=== PATIENT | female | born 1995 | race Caucasian/White ===

== ENCOUNTER 2017-07-03 09:14 | Emergency (ER) | payer OTHER ==
[2017-07-03 09:24] VITALS: BP 113/78
--- NOTE | 2017-07-03 09:48 | UC ---
Throat Pain/Nasal [place] HPI - HPI Summary HPI Summary: [address] AND PAIN WITH SWALLOWING. HAS SUBJECTIVE FEVERS AND MILD COUGH WITH CONGESTION. - History of Current Complaint Chief Complaint: UCRespiratory Stated Complaint: SINUS, AND CHEST CONGESTION Time Seen by Provider: 07/03/17 09:39 Hx Obtained From: Patient Hx Last Menstrual Period: 06/19/17 Onset/Duration: Gradual Onset, Lasting Days, Still Present Severity: Moderate Pain Intensity: 7 Pain Scale Used: 0-10 Numeric Cough: Nonproductive Associated Signs & Symptoms: Positive: Fever - Allergies/Home Medications Allergies/Adverse Reactions: Allergies Allergy/AdvReac Type Severity Reaction Status Date / Time No Known Allergies Allergy Verified 07/03/17 09:23 PMH/Surg Hx/FS Hx/Imm Hx Previously Healthy: Yes - Surgical History Surgical History: None - Family History Known Family History: Positive: Hypertension - Social History Alcohol Use: Weekly Substance Use Type: None Smoking Status (MU): Light Every Day Tobacco Smoker Type: Cigarettes Review of Systems Constitutional: Fever, Fatigue ENT: Sore Throat, Nasal Discharge Respiratory: Cough Cardiovascular: Negative Gastrointestinal: Negative All Other Systems Reviewed And Are Negative: Yes Physical Exam Triage Information Reviewed: Yes Appearance: Well-Appearing, No Pain Distress, Well-Nourished Vital Signs: Initial Vital Signs Temp 98.1 F 07/03/17 09:16 Pulse 119 07/03/17 09:16 Resp 18 07/03/17 09:16 BP 113/78 07/03/17 09:16 Pulse Ox 100 07/03/17 09:16 Vital Signs Reviewed: Yes Eyes: Positive: Conjunctiva Clear ENT: Positive: Hearing grossly normal, Pharynx normal, TMs normal. Negative: Tonsillar swelling, Tonsillar exudate, Hoarse voice Neck: Positive: Supple, Tenderness @ - SHOTTY SPFL CERVICAL LAD, Enlarged Nodes @ - SHOTTY SPFL CERVICAL LAD Respiratory Exam: Normal Cardiovascular Exam: Normal Abdomen Description: Positive: Soft Musculoskeletal: Positive: No Edema Neurological: Positive: Alert Psychological: Positive: Age Appropriate Behavior Skin: Negative: rashes Diagnostics - Laboratory Diagnostic Studies Completed/Ordered: RAPID STREP NEGATIVE Throat Pain/Nasal Course/Dx - Differential Dx/Diagnosis Provider Diagnoses: ACUTE PHARYNGITIS Discharge - Discharge Plan Condition: Stable Disposition: HOME Prescriptions: [id number] W/ APAP [Daytime Severe Cold &... 5-66-931-325 mg/15Ml] 1 liq PO DAILY #1 bottle [id number] [Nyquil Severe Cold/Flu 5-6.25-10-325 mg/15Ml] 1 liq PO BEDTIME #1 bottle Patient Education Materials: Pharyngitis (ED) Forms: *Work Release Referrals: No Primary Care Phys,NOPCP [Primary Care Provider] - Additional Instructions: STREP TEST NEGATIVE. YOUR SYMPTOMS ARE LIKELY VIRALLY MEDIATED AND SHOULD RESOLVE ON THEIR OWN WITH TIME. REST, HYDRATE, OTC MEDS NEEDED. SEEK FOLLOW-UP IF YOU ARE NOT IMPROVING OVER THE NEXT 1-2 WEEKS. CALL THE NUMBER BELOW FOR ASSISTANCE IN ESTABLISHING WITH A PCP An additional resource available to assist in finding the appropriate physician for your health care needs is the [facility] ([facility]). You may contact them by calling [phone].
== END 2017-07-03 10:20 | disposition home or self-care (01) ==
LOC: UCEAST 09:14
DX: J02.9 Acute pharyngitis, unspecified (principal); Z72.0 Tobacco use
CPT/HCPCS: 87651; 99201; G0463

== ENCOUNTER 2018-05-19 12:44 | Emergency (ER) | payer BC, OTHER ==
[2018-05-19 15:53] VITALS: BP 130/48
--- NOTE | 2018-05-19 16:06 | UC ---
Complaint Female HPI - HPI Summary HPI Summary: 22 y/o female presents to the urgent care c/o past 1 -2 weeks ago, when pt voids she has noticed burning. pt states on her symptoms began to get worse. pt c/o burning with void, constant burning, stinging pain to lower abd. - History Of Current Complaint Chief Complaint: UCGU Stated Complaint: BURNING URINATION Time Seen by Provider: 05/19/18 15:50 Hx Obtained From: Patient Hx Last Menstrual Period: 04/28/18 Pain Intensity: 4 - Allergies/Home Medications Allergies/Adverse Reactions: Allergies Allergy/AdvReac Type Severity Reaction Status Date / Time No Known Allergies Allergy Verified 05/19/18 15:53 PMH/Surg Hx/FS Hx/Imm Hx - Surgical History Surgical History: Yes Surgery Procedure, Year, and Place: oral surgery - Family History Known Family History: Positive: Hypertension - Social History Alcohol Use: Occasionally Substance Use Type: Marijuana Substance Use Comment - Amount & Last Used: daily Smoking Status (MU): Light Every Day Tobacco Smoker Type: Cigarettes Physical Exam - Summary Physical Exam Summary: VITAL SIGNS: Reviewed. GENERAL: Patient is a well developed and nourished female who is sitting comfortable in the examining table. Patient is not in any acute respiratory distress. HEAD AND FACE: No signs of trauma. No ecchymosis, hematomas or skull depressions. No sinus tenderness. EYES: PERRLA, EOMI x 2, No injected conjunctiva, clear watery eyes, no nystagmus. No photophobia. EARS: Hearing grossly intact. Ear canals and tympanic membranes are within normal limits. MOUTH: pharynx with no erythema, no exudates,no palatal petechiae. no B/L tonsillar enlargement Uvula in midline. NECK: Supple, trachea is midline, no lymphadenopathy, no JVD, no carotid bruit, no c-spine tenderness, neck with full ROM. CHEST: Symmetric, no tenderness at palpation LUNGS: Clear to auscultation bilaterally. No wheezing or crackles. CVS: Regular rate and rhythm, S1 and S2 present, no murmurs or gallops appreciated. ABDOMEN: Soft, non-tender. No signs of distention. No rebound no guarding, and no masses palpated. Bowel sounds are normal. BACK:no scoliosis or lesions, non tender to palpation, No B/L CVA tenderness EXTREMITIES: FROM in all major joints, no edema, no cyanosis or clubbing. NEURO: Alert and oriented x 3. No acute neurological deficits. Speech is normal and follows commands. SKIN: Dry and warm Triage Information Reviewed: Yes Vital Signs: Initial Vital Signs Temp 98.1 F 05/19/18 15:48 Pulse 76 05/19/18 15:48 Resp 18 05/19/18 15:48 BP 130/48 05/19/18 15:48 Pulse Ox 100 05/19/18 15:48 Complaint Female Dx - Differential Dx/Diagnosis Differential Diagnosis/HQI/PQRI: Cervicitis, Pelvic Inflammatory Disease, , Renal Colic, Sexually Transmitted Disease, Ureteral Stone, Urinary Tract Infection Provider Diagnoses: 1- UTI. 2-Dysuria Discharge - Sign-Out/Discharge Documenting (check all that apply): Patient Departure - D/C home All imaging exams completed and their final reports reviewed: No Studies - Discharge Plan Condition: Stable Disposition: HOME Prescriptions: Phenazopyridine TAB* [Pyridium 100 mg TAB*] 100 mg PO TID #6 tab Sulfamethox/Trimethoprim DS* [Bactrim DS 800/160 TAB*] 1 tab PO BID #14 tab Patient Education Materials: Urinary Tract Infection in Women (ED) Referrals: [facility] [place] [facility]IAN REFERRAL [Outside] - 3 Days Additional Instructions: 1- Please take Bactrim [id number] PO x 7 days. Pyridium 100 mg PO TID x 2 days to alleviate urinary symptoms. Increase increase fluid intake. drink cranberry juice. 2-Urine sent for culture if any abnormality, you will be notified for further treatment. 3-If symptoms do not improve and you develop flank pain and pain despite taking antibiotics please go immediately to the ER for further management. Otherwise f/ u w/ your PCP if not improvement of symptoms - Billing Disposition and Condition Condition: STABLE Disposition: Home
== END 2018-05-19 16:35 | disposition home or self-care (01) ==
LOC: UCEAST 12:44
DX: N39.0 Urinary tract infection, site not specified (principal); F17.210 Nicotine dependence, cigarettes, uncomplicated
CPT/HCPCS: 81003; 84702; 87077; 87086; 99212; G0463

== ENCOUNTER 2018-05-21 12:09 | Emergency (ER) | payer BC ==
--- NOTE | 2018-05-21 12:40 | ED ---
GI/ HPI - HPI Summary HPI Summary: The pt is a 22 y/o female presenting to [facility] c/o of L flank pain since 3 days ago worsened today. She was seen at Urgent Care 3 days ago for a UTI and given abx to mild relief of the UTI sx. She notes pain with urination (since 1 week ago), hot flushes, and mild pelvic pain but denies fevers, N/V/D, and vaginal bleeding. The flank pain rated 6/10 in severity is aggravated by inhalation. - History of Current Complaint Chief Complaint: EDUrogenitalProblems Time Seen by Provider: 05/21/18 12:29 Stated Complaint: POSSIBLE UTI KIDNEY PAIN Hx Obtained From: Patient Hx Last Menstrual Period: 04/28/18 Onset/Duration: Started Days Ago - 3 days, Still Present Current Severity: Moderate Pain Intensity: 6 Location of Pain: Flank - L side Associated Signs and Symptoms: Positive: Negative - Vaginal bleeding, Flank Pain , UTI Symptoms, Other: - Hot flushes. Negative: Nausea, Vomiting, Diarrhea, Fever Aggravating Factor(s): Deep Breaths - Allergy/Home Medications Allergies/Adverse Reactions: Allergies Allergy/AdvReac Type Severity Reaction Status Date / Time No Known Allergies Allergy Verified 05/19/18 15:53 PMH/Surg Hx/FS Hx/Imm Hx Previously Healthy: No Endocrine/Hematology History: Denies: Hx Diabetes Cardiovascular History: Denies: Hx Hypertension Psychiatric History: Reports: Hx Anxiety, Hx Depression - Cancer History Cancer Type, Location and Year: None reported Hx Hematologic Symptoms: No Hx Chemotherapy: No Hx Radiation Therapy: No Hx Palliative Cancer Treatment: No - Surgical History Surgery Procedure, Year, and Place: oral surgery Infectious Disease History: No Infectious Disease History: Denies: Traveled Outside the [place] in Last 30 Days - Family History Known Family History: Positive: Hypertension - Social History Occupation: Employed Full-time Alcohol Use: Occasionally Substance Use Type: Reports: Marijuana Substance Use Comment - Amount & Last Used: daily Smoking Status (MU): Light Every Day Tobacco Smoker Type: Cigarettes Review of Systems Positive: Other - Positive- hot flushes . Negative: Fever Negative: Vomiting, Diarrhea, Nausea Genitourinary: Negative - Vaginal bleeding Positive: flank pain - L side , pain - with urination , other - Positive- mid pelvic pain All Other Systems Reviewed And Are Negative: Yes Physical Exam - Summary Physical Exam Summary: Appearance: Well-appearing, Well-nourished, lying in bed comfortably Skin: Warm, dry, no obvious rash Eyes: sclera anicteric, no conjunctival pallor ENT: mucous membranes moist, pharynx appears normal Neck: Supple, nontender Respiratory: Clear to auscultation, no signs of respiratory distress Cardiovascular: Normal S1, S2. No murmurs. Normal distal pulses in tibial and radial bilaterally. Abdomen: Soft, nontender, normal active bowel sounds present Musculoskeletal: Mild L CVA tenderness ; Strength/ROM Intact Neurological: A&Ox3, awake and alert, mentation is normal, speech is fluent and appropriate Psychiatric: affect is normal, does not appear anxious or depressed Triage Information Reviewed: Yes Vital Signs On Initial Exam: Initial Vitals Temp Pulse Resp BP Pulse Ox 98.8 F 110 18 126/78 99 05/21/18 12:13 05/21/18 12:13 05/21/18 12:13 05/21/18 12:13 05/21/18 12:13 Vital Signs Reviewed: Yes Diagnostics - Vital Signs Vital Signs Temp Pulse Resp BP Pulse Ox 05/21/18 12:13 98.8 F 110 18 126/78 99 - Laboratory Result Diagrams: 05/21/18 12:58 05/21/18 12:58 Lab Statement: Any lab studies that have been ordered have been reviewed, and results considered in the medical decision making process. GIGU Course/Dx - Course Course Of Treatment: A 22 year-old F presents to the ED with a CC of L flank pain since 3 days ago worsened today. She was seen at Urgent Care 3 days ago for a UTI and given abx to mild relief of the UTI sx. She notes pain with urination (since 1 week ago), hot flushes, and mild pelvic pain but denies fevers, N/V/D, and vaginal bleeding. The flank pain is aggravated by inhalation. A physical exam revealed mild CVA tenderness. Patient will be discharged with a final Dx of pyelonephritis. Pt is agreeable with this plan. Allergies noted - Diagnoses Provider Diagnoses: Pyelonephritis Discharge - Sign-Out/Discharge Documenting (check all that apply): Patient Departure - DC - Discharge Plan Condition: Good Disposition: HOME Patient Education Materials: Kidney Infection (ED) Forms: *School Release Referrals: [facility] [Outside] - 3 Days Additional Instructions: The pain from a kidney infection can take several days to respond, even if the antibiotics are working correctly, which the culture results from Saturday would indicate they are. I would give the pain until to start improving before worrying about it too much, but if you start feeling worse we should see you sooner than that. You should continue and finish the prescribed antibiotic. You can take Motrin or Naprosyn for the pain in the meantime. Return to ED for any new or worsening symptoms - Billing Disposition and Condition Condition: GOOD Disposition: Home - Attestation Statements Document Initiated by Codi: Yes Documenting Scribe: Celena José Provider For Whom Codi is Documenting (Include Credential): Rocael Harris MD Scribe Attestation: Celena Alicea, scribed for Rocael Harris MD on 05/22/18 at 1449. Scribe Documentation Reviewed: Yes Provider Attestation: The documentation as recorded by the Celena menard accurately reflects the service I personally performed and the decisions made by me, Rocael Harris MD
[2018-05-21 13:13] LABS: Hematocrit 38 % (35-47); Hemoglobin 12.7 g/dl (12.0-16.0); Mean Corpuscular HGB Conc 33 g/dl (31-36); Mean Corpuscular Hemoglobin 29 pg (27-31); Mean Corpuscular Volume 88 fL (80-97); Mean Platelet Volume 8.3 um3 (7.4-10.4); Platelet Count 191 10^3/ul (150-450); Red Blood Count 4.34 10^6/ul (4.00-5.40); Red Cell Distribution Width 14 % (10.5-15); White Blood Count 7.1 10^3/ul (3.5-10.8)
[2018-05-21 13:17] LABS: ABS Basophils 0 10^3/ul (0-0.2); ABS Eosinophils 0.1 10^3/ul (0-0.6); ABS Lymphocytes 2.5 10^3/ul (1.0-4.8); ABS Monocytes 0.4 10^3/ul (0-0.8); ABS Nucleated RBC 0 10^3/ul; Eosinophil % 1.5 % (0-6); Lymphocyte % 35.3 % (25-47); Nucleated Red Blood Cells % 0.1
[2018-05-21 13:42] LABS: EGFR Non-African American 114.2 (>60)
[2018-05-21 14:14] VITALS: BP 112/70
== END 2018-05-21 14:13 | disposition home or self-care (01) ==
LOC: ED 12:09
DX: N12 Tubulo-interstitial nephritis, not specified as acute or chronic (principal); F17.210 Nicotine dependence, cigarettes, uncomplicated
CPT/HCPCS: 36415; 80048; 84702; 85025; 99282

== ENCOUNTER 2021-11-15 13:34 | Inpatient (IN) ==
[2021-11-15 14:43] LABS: ABS Eosinophils 0.1 10^3/ul (0-0.6); ABS Lymphocytes 2.5 10^3/ul (1.0-4.8); ABS Monocytes 0.3 10^3/ul (0-0.8); ABS Neutrophils 3.7 10^3/ul (1.5-7.7); Eosinophil % 1.1 %; Hematocrit 37 % (35-47); Hemoglobin 12.6 g/dL (12.0-16.0); Lymphocyte % 37.6 %; Mean Corpuscular HGB Conc 34 g/dL (31-36); Mean Corpuscular Hemoglobin 29 pg (27-31); Mean Corpuscular Volume 86 fL (80-97); Mean Platelet Volume 7.8 fL (7.4-10.4); Platelet Count 242 10^3/uL (150-450); Red Blood Count 4.34 10^6 /uL (3.70-4.87); Red Cell Distribution Width 14 % (10-15); White Blood Count 6.6 10^3/uL (3.5-10.8)
[2021-11-15 14:44] LABS: Urine Appearance Cloudy; Urine Bilirubin Negative (Negative); Urine Blood Negative (Negative); Urine Color Yellow; Urine Glucose Negative (Negative); Urine Ketones Negative (Negative); Urine Nitrite Negative (Negative); Urine Protein Negative (Negative); Urine Specific Gravity 1.014 (1.002-1.030); Urine Urobilinogen Negative (Negative)
[2021-11-15 14:48] LABS: Urine Amorphous Crystals Present (Absent); Urine Bacteria Absent (Absent); Urine Red Blood Cell Trace(0-2/hpf) (Absent); Urine Squamous Epithelial Cell Present (Absent); Urine White Blood Cell Trace(0-5/hpf) (Absent)
[2021-11-15 15:01] LABS: Urine Benzodiazepine Screen None Detected (None Detect); Urine Cannabinoids Screen Presumptive Positive (None Detect); Urine Opiates Screen None Detected (None Detect)
[2021-11-15 15:31] LABS: ALT 11 U/L (7-52); AST 14 U/L (13-39); Acetaminophen < 15 mcg/mL; Albumin 4.4 g/dL (3.2-5.2); Alcohol, S < 13 mg/dL (<13); Alkaline Phosphatase 59 U/L (35-149); Anion Gap 7 mmol/L (2-11); Blood Urea Nitrogen 9 mg/dL (6-24); CO2 Carbon Dioxide 30 mmol/L (22-32); Calcium 9.5 mg/dL (8.6-10.3); Chloride 100 mmol/L (101-111); Globulin 2.2 g/dL (2-4); Glucose 82 mg/dL (70-100); Potassium 3.9 mmol/L (3.5-5.0); Salicylate < 2.50 mg/dL (<30); Sodium 137 mmol/L (135-145); Total Protein 6.6 g/dL (6.4-8.9); eGFR CKD-EPI 127.3 (>60)
[2021-11-15 15:37] LABS: HCG Pregnancy < 0.60 mIU/mL
[2021-11-15 15:46] LABS: TSH Ultra Thyroid Stim Horm 2.07 mcIU/mL (0.34-5.60)
[2021-11-15] MEDS ORDERED: Al Hydrox/Mg Hydrox/Simet LIQ 30 ML UDC PO PRN (16:55)
[2021-11-16] MEDS: Vitamin THERAPEUTIC TAB PO SCH (09:54)
[2021-11-16] MEDS ORDERED: Nicotine GUM 2MG FRUIT FLAVOR PO ONE (12:44)
[2021-11-16] MEDS: Venlafaxine XR 75 mg PO SCH (12:45)
[2021-11-16] MEDS: Nicotine GUM 2MG FRUIT FLAVOR PO PRN ×3 (12:52→22:35)
[2021-11-16] MEDS: Nicotine PATCH 14 MG/24 HR PATCH TRANSDERM SCH (15:38)
[2021-11-17] MEDS: Nicotine GUM 2MG FRUIT FLAVOR PO PRN ×4 (01:43→22:46)
[2021-11-17] MEDS: Venlafaxine XR 75 mg PO SCH (08:26)
[2021-11-17] MEDS: Nicotine PATCH 14 MG/24 HR PATCH TRANSDERM SCH (08:27)
[2021-11-17] MEDS: Vitamin THERAPEUTIC TAB PO SCH (08:27)
[2021-11-18] MEDS: Nicotine PATCH 14 MG/24 HR PATCH TRANSDERM SCH (07:43)
[2021-11-18] MEDS: Vitamin THERAPEUTIC TAB PO SCH (07:43)
[2021-11-18] MEDS: Nicotine GUM 2MG FRUIT FLAVOR PO PRN ×2 (14:58→21:16)
[2021-11-19] MEDS: Nicotine PATCH 14 MG/24 HR PATCH TRANSDERM SCH (07:28)
[2021-11-19] MEDS: Vitamin THERAPEUTIC TAB PO SCH (07:28)
[2021-11-19] MEDS: Nicotine GUM 2MG FRUIT FLAVOR PO PRN ×3 (11:29→17:44)
[2021-11-20] MEDS: Vitamin THERAPEUTIC TAB PO SCH (07:52)
[2021-11-20] MEDS: Nicotine PATCH 14 MG/24 HR PATCH TRANSDERM SCH (07:53)
[2021-11-20 10:21] VITALS: BP 133/73
[2021-11-20] MEDS: Nicotine GUM 2MG FRUIT FLAVOR PO PRN (14:12)
== END 2021-11-20 17:10 | disposition home or self-care (01) | DRG 885 ==
LOC: ED 13:34 → BSU 16:55
PROVIDERS: ADMIT Student in an Organized Health Care Education/Training Program; ATTEND Psychiatry & Neurology Psychiatry